=== PATIENT | female | born 1940 | race American Indian/Alaskan Native ===

== ENCOUNTER 2016-07-01 11:30 | Outpatient (CLI) | payer MEDICARE ==
--- NOTE | 2016-07-01 16:07 | Mammography Report ---
Bilateral digital screening mammogram with CAD. Comparison is made to the previous study on January 16, 2015. Findings: The breasts have a fibrofatty appearance. 2 small asymmetry is seen in the posterior right breast on the previous study have resolved. No masses, architectural distortion, or suspicious calcifications are seen. A single biopsy clip is seen in the right subareolar region. Impression: No suspicious findings. BI-RADS code: 2. Recommendation: Annual screening.
== END 2016-07-01 11:31 | disposition home or self-care (01) ==
LOC: MAMMO 11:30
PROVIDERS: ATTEND Family Medicine
DX: Z12.31 Encounter for screening mammogram for malignant neoplasm of breast (principal)
CPT/HCPCS: 77067; G0202

== ENCOUNTER 2016-07-09 11:09 | Outpatient (CLI) | payer MEDICARE ==
--- NOTE | 2016-07-09 11:56 | Mammography Report ---
BONE DENSITY STUDY: DEFINITIONS: BMD = Bone Mineral Density T-score = BMD related to mean peak bone mass of young adult (mean expressed in Standard Deviation) Z-score = Age matched BMD expressed in SD World Health Organization (WHO) Diagnostic Criteria Normal T-score > -1 SD Osteopenia T-score between -1 and -2.4 SD Osteoporosis T-score -2.5 SD or below FINDINGS: The weighted average BMD of lumbar spine L1-L4 is 1.581 with a T-score of 4.9. The weighted average BMD of hip is 1.087 with a T-score of 1.2. IMPRESSION: The patient's T-score is diagnostic for normal bone density and low relative risk for fracture. NOTE: BMD is not the only risk factor for fracture; also consider factors such as the patient's age, risk of falling, previous osteoporotic fracture, family history of osteoporotic fractures, current smoker, and low body weight. Morin's triangle is a region of interest in femur, predominantly of trabecular bone. It is not a true anatomic site, and ISCD does not recommend its use clinically.
== END 2016-07-09 11:10 | disposition home or self-care (01) ==
LOC: MAMMO 11:09
PROVIDERS: ATTEND Family Medicine
DX: M81.0 Age-related osteoporosis without current pathological fracture (principal)
CPT/HCPCS: 77080

== ENCOUNTER 2020-06-27 10:40 | Outpatient (CLI) | payer MEDICARE ==
--- NOTE | 2020-06-27 14:35 | Mammography Report ---
DIGITAL SCREENING MAMMOGRAM WITH CAD, 06/27/2020 CLINICAL INFORMATION / INDICATION: Routine screening mammography. Although this mammogram was origina lly scheduled as a screening mammogram, the patient reports bilateral breast lumps and pain. We were not able to get a diagnostic mammogram and ultrasound order at the time of the patient's visit. TECHNIQUE: Digital bilateral 2D mammography was obtained in the craniocaudal and mediolateral obliqu e projections. This examination was interpreted with the benefit of Computer-Aided Detection analysis . COMPARISON: 07/01/2016 FINDINGS: Breast Density: There are scattered areas of fibroglandular density. No dominant mass, suspicious calcifications, or architectural distortion in either breast. IMPRESSION: 1. The patient will need to return for additional spot compression views and bilateral breast ultraso und to further assess the areas of pain and palpable concern in both breasts. We were not able to get a correct order for diagnostic mammogram and ultrasound at the time of the patient's visit. Follow up recommendation: Ultrasound BI-RADS Category 0: Incomplete. Needs additional imaging evaluation and/or prior mammograms for maggie corrales. A "normal" or negative report should not discourage follow up or biopsy of a clinically significant f inding. A written summary of these findings will be mailed to the patient. The patient will be entered into a mammography reporting system which will generate a reminder letter for the patient's next appointmen t at the appropriate interval. The [employer] recommends yearly mammograms starting at age 40 and continuing as l adolfo as a woman is in good health. Breast MRI is recommended for women with an approximate 20-25% or greater lifetime risk of breast cancer, including women with a strong family history of breast or ova angelito cancer or who have been treated for Hodgkin's disease. Signer Name: aDnita Valerio MD Signed: 06/27/2020 2:31 PM Workstation Name: [employer]
== END 2020-06-27 10:41 | disposition home or self-care (01) ==
LOC: MAMMO 10:40
PROVIDERS: ATTEND Family Medicine
DX: Z12.31 Encounter for screening mammogram for malignant neoplasm of breast (principal); N64.4 Mastodynia; N63.20 Unspecified lump in the left breast, unspecified quadrant; N63.10 Unspecified lump in the right breast, unspecified quadrant; Z80.3 Family history of malignant neoplasm of breast
CPT/HCPCS: 77067

== ENCOUNTER 2020-07-05 09:33 | Outpatient (CLI) | payer MEDICARE ==
--- NOTE | 2020-07-05 11:48 | Ultrasound Report ---
BILATERAL DIGITAL DIAGNOSTIC MAMMOGRAM WITH CAD CONVENTIONAL, 07/05/2020 BILATERAL LIMITED BREAST ULTRASOUND CLINICAL INFORMATION / INDICATION: Bilateral axillary lumps/pain. R92.0 TECHNIQUE: Digital bilateral mammographic imaging was performed. Spot compression views were obtained . Limited ultrasound was performed. This examination was interpreted with the benefit of Computer-Aid ed Detection (CAD) analysis. COMPARISON: Bilateral mammography 06/27/20. FINDINGS: Breast Density: The breasts are almost entirely fatty. MAMMOGRAPHIC FINDINGS: No dominant mass, suspicious calcifications, or architectural distortion in ei ther breast. No pathologic adenopathy. ULTRASOUND FINDINGS: Targeted ultrasound evaluation was performed of the area of interest. RIGHT: There is a benign lymph node in the axilla measuring 6.9 mm short axis. No other abnormality. LEFT: There is a benign lymph node in the axilla measuring 7.5 mm short axis. No other abnormality. IMPRESSION: Small benign axillary lymph nodes bilaterally. No mammographic or sonographic evidence of malignancy. Follow up recommendation: Routine yearly BI-RADS Category 2: Benign. A "normal" or negative report should not discourage follow up or biopsy of a clinically significant f inding. A written summary of these findings will be mailed to the patient. The patient will be entered into a mammography reporting system which will generate a reminder letter for the patient's next appointmen t at the appropriate interval. According to the [employer], yearly mammograms are recommended starting at age 40 and continuing as long as a woman is in good health. Breast MRI is recommended for women with an lefty roximately 20-25% or greater lifetime risk of breast cancer, including women with a strong family his tory of breast or ovarian cancer and women who have been treated for Hodgkin's disease. Signer Name: Jesus Lees MD Signed: 07/05/2020 11:44 AM Workstation Name: [email or web address]
== END 2020-07-05 09:34 | disposition home or self-care (01) ==
LOC: MAMMO 09:33
PROVIDERS: ATTEND Family Medicine
DX: R92.0 Mammographic microcalcification found on diagnostic imaging of breast (principal); R59.0 Localized enlarged lymph nodes
CPT/HCPCS: 77066

== ENCOUNTER 2020-08-01 09:57 | Outpatient (CLI) | payer MEDICARE ==
--- NOTE | 2020-08-01 13:38 | Vascular Lab Report ---
DOPPLER ULTRASOUND LOWER EXTREMITY VENOUS MAPPING, BILATERAL INDICATION / CLINICAL INFORMATION: VENOUS INSUFFICIENCY BILATERAL TECHNIQUE: Grayscale, color and spectral Doppler imaging of the venous system of the right and left lower extrem ities was performed. COMPARISON: None available. FINDINGS: Limited study secondary to patient body habitus and positioning. RIGHT LOWER EXTREMITY: DVT (Y/N) = No. Great Saphenous Vein (diameter in cm): - Thigh Proximal: 0.65 - Thigh Mid: 0.49 - Thigh Distal: 0.52 - Calf Proximal: 0.52 - Calf Mid: 0.35 - Calf Distal: 0.29 Mild venous reflux noted in the right mid superficial femoral vein external iliac vein and greater sa phenous vein. Small saphenous vein was not able to be evaluated secondary to study limitations. LEFT LOWER EXTREMITY: DVT (Y/N) = No. Great Saphenous Vein (diameter in cm): - Thigh Proximal: 0.4 - Thigh Mid: 0.23 - Thigh Distal: 0.14 - Calf Proximal: 0.07 - Calf Mid: 0.09 - Calf Distal: 0.18 Mild venous reflux noted in the left common femoral vein and left greater saphenous vein. Small saphe nous vein was not able to be evaluated secondary to study limitations. Additional Findings: None. IMPRESSION: 1. No sonographic evidence of deep venous thrombosis. 2. Bilateral venous insufficiency of the lower extremities described in detail above Signer Name: Jose Antonio Mullen MD Signed: 08/01/2020 1:34 PM Workstation Name: [id number]
== END 2020-08-01 09:58 | disposition home or self-care (01) ==
LOC: VAS 09:57
PROVIDERS: ATTEND Podiatrist Foot & Ankle Surgery
DX: I87.2 Venous insufficiency (chronic) (peripheral) (principal)
CPT/HCPCS: 93970

== ENCOUNTER 2020-08-19 10:01 | Outpatient (CLI) | payer MEDICARE ==
--- NOTE | 2020-08-19 14:05 | Magnetic Resonance Report ---
MR lumbar spine wo con INDICATION / CLINICAL INFORMATION: 80 years Female; low back and bilateral leg pain TECHNIQUE: Multisequence, multiplanar images of the lumbar spine were obtained. COMPARISON: None available. FINDINGS: ALIGNMENT: There is grade 1/2 anterolisthesis of L5 with respect to S1 and L4 with respect to L5. VERTEBRAE:Grossly normal marrow signal and vertebral body height for age. Multilevel Modic type I en dplate changes are seen, with most marked findings at L3-4 and L4-5. VISUALIZED SPINAL CORD: No significant abnormality. INTERVERTEBRAL DISCS: Multilevel disc desiccation noted. Narrowing seen at multiple levels as well. [id number]-HP-[id number] ANALYSIS: L1-2: Mild disc bulge and exjb-pp-gfauctzx facet hypertrophy. Mild canal narrowing. Lateral foraminal narrowing on the left and mild on the right. No significant sequela. L2-3: Mild disc bulge and broad-based right lateral recess/foraminal disc protrusion. Moderate facet hypertrophy seen bilaterally. Mild to moderate canal narrowing noted. There is lateral recess narrowi ng on the right, which could affect the right L3 nerve. Moderate foraminal narrowing seen bilaterally with encroachment upon the L2 nerves. No impingement appreciated. L3-4: Mild disc bulge and broad-based left lateral recess/foraminal disc protrusion. Moderate facet b orderline ligamentum flavum hypertrophy. Moderate to high-grade canal narrowing noted. There is later al recess narrowing on the left, which certainly could affect the left L4 nerve. Marked foraminal shay rowing bilaterally from facet hypertrophy and/or spondylosis. Findings certainly encroach upon the ex iting L3 nerves with borderline impingement noted, although appear to be on a chronic basis. L4-5: Moderate disc bulge and moderate facet/ligamentum flavum hypertrophy. Small synovial cyst sugge sted in the left lateral recess as well. Findings result in high-grade canal narrowing as well as oliva ateral, lateral recess narrowing which could affect L5 nerves. Moderate to marked foraminal narrowing seen bilaterally because of the listhesis, facet hypertrophy, and pseudodisc disease. There is encro achment upon and flattening of the L4 nerves bilaterally. L5-S1: Mild disc bulge and moderate to marked facet hypertrophy. Mild canal narrowing with some degre e of lateral recess narrowing which may affect the S1 nerves. There is moderate foraminal narrowing o n the left and moderate to marked on the right from spondylosis and the listhesis. Changes appear to be chronic, but certainly could affect the L5 nerves-right greater than left. PARASPINAL SOFT TISSUES: There is increased FLAIR signal seen in the marrow of the right facet joint at L4-5. Findings are presumably reactive from facet arthropathy and may be a source of pain. ADDITIONAL FINDINGS: None. IMPRESSION: 1. Significant, multilevel degenerative changes as described above. Most marked findings appear to be at L4-5, followed by L3-4, although findings at multiple levels may affect the exiting or descending nerve roots. Please correlate with dermatomal distribution of patient's symptoms, if present. . Signer Name: Prabhjot Marques MD, III Signed: 08/19/2020 2:00 PM Workstation Name: [id number]
== END 2020-08-19 10:02 | disposition home or self-care (01) ==
LOC: MRI 10:01
PROVIDERS: ATTEND Psychiatry & Neurology Neurology
DX: M51.36 Other intervertebral disc degeneration, lumbar region (principal); M48.07 Spinal stenosis, lumbosacral region; M47.817 Spondylosis without myelopathy or radiculopathy, lumbosacral region
CPT/HCPCS: 72148

== ENCOUNTER 2020-11-25 10:40 | Outpatient (CLI) | payer MEDICARE ==
[2020-11-25 11:41] LABS: Blood Urea Nitrogen 17 mg/dL (7-17)
== END 2020-11-25 10:41 | disposition home or self-care (01) ==
LOC: CT 10:40
PROVIDERS: ATTEND Psychiatry & Neurology Neurology
DX: J32.9 Chronic sinusitis, unspecified (principal)
CPT/HCPCS: 36415; 82565; 84520

== ENCOUNTER 2021-06-20 14:16 | Observation (INO) | payer MEDICARE ==
--- NOTE | 2021-06-20 15:22 | Emergency Department Report ---
ED General Adult HPI - General Chief complaint: Dyspnea/Respdistress Stated complaint: SWELLING AND WEAKNESS IN LEGS Time Seen by Provider: 06/20/21 15:08 Source: EMS Mode of arrival: Ambulatory Limitations: No Limitations - History of Present Illness Initial comments: Patient presents with complaints of SOB @ rest and on exertion. Denies PND, orthopnea. Endorses intermittent chest pain, retrosternal, heavy/tightness, non- radiating, 10/10 @ its peak, none now, not worsened or relieved by anything. Denies palpitations, diaphoresis. Endorses bilateral leg swelling. Denies pain in her calves, recent travel, immobilization, surgery, hospitalization, sex HRT use Severity scale (0 -10): 10 - Related Data Allergies Allergy/AdvReac Type Severity Reaction Status Date / Time codeine AdvReac Swelling Verified 06/20/21 22:06 latex AdvReac Rash Verified 06/20/21 22:06 CONTRAST DYES AdvReac Swelling Uncoded 06/20/21 22:06 ED Review of Systems ROS: Stated complaint: SWELLING AND WEAKNESS IN LEGS Other details as noted in HPI Comment: All other systems reviewed and negative Constitutional: denies: chills, fever ED Physical Exam - General Limitations: No Limitations General appearance: alert, in no apparent distress - Head Head exam: Present: atraumatic, normocephalic - Eye Eye exam: Present: PERRL, EOMI - ENT ENT exam: Present: mucous membranes moist, other (airway patent) - Neck Neck exam: Present: other (supple; no JVD) - Respiratory Respiratory exam: Present: other (good air entry, nml I:E, CTAB, no use of AGUSTIN) - Cardiovascular Cardiovascular Exam: Present: regular rate. Absent: rubs, gallop - GI/Abdominal GI/Abdominal exam: Present: soft, normal bowel sounds. Absent: distended, tenderness - Extremities Exam Extremities exam: Present: other (2+ pitting edema in shins; tender to palpation in R calf with positive Aron's sign) - Back Exam Back exam: Present: full ROM. Absent: tenderness - Neurological Exam Neurological exam: Present: alert, oriented X3, CN II-XII intact. Absent: motor sensory deficit - Skin Skin exam: Present: warm, normal color ED Course Vital Signs 06/20/21 06/20/21 06/20/21 15:05 15:08 15:30 Temperature 97.8 F Pulse Rate 85 85 73 Respiratory 18 16 15 Rate Blood Pressure 152/75 Blood Pressure 152/75 [Left] O2 Sat by Pulse 100 99 97 Oximetry 06/20/21 06/20/21 06/20/21 16:00 16:03 16:30 Temperature Pulse Rate 73 74 Respiratory 21 18 16 Rate Blood Pressure 177/63 152/57 Blood Pressure [Left] O2 Sat by Pulse 98 98 98 Oximetry 06/20/21 06/20/21 06/20/21 17:00 17:30 17:46 Temperature Pulse Rate 80 74 74 Respiratory 18 13 18 Rate Blood Pressure 152/57 173/80 Blood Pressure 173/80 [Left] O2 Sat by Pulse 100 98 Oximetry 06/20/21 06/20/21 06/20/21 18:00 18:30 19:00 Temperature Pulse Rate 75 68 74 Respiratory 11 L 16 15 Rate Blood Pressure 169/65 151/58 168/51 Blood Pressure [Left] O2 Sat by Pulse 98 97 99 Oximetry 06/20/21 06/20/21 06/20/21 19:30 20:01 20:31 Temperature Pulse Rate 72 75 82 Respiratory 16 28 H 24 Rate Blood Pressure 154/55 152/57 137/46 Blood Pressure [Left] O2 Sat by Pulse 100 98 100 Oximetry 06/20/21 06/20/21 06/20/21 20:38 20:43 21:01 Temperature 98.7 F Pulse Rate 78 78 Respiratory 18 16 Rate Blood Pressure 145/45 Blood Pressure 137/46 [Left] O2 Sat by Pulse 100 98 99 Oximetry 06/20/21 06/20/21 06/20/21 21:31 22:01 22:31 Temperature Pulse Rate 77 74 77 Respiratory 20 17 19 Rate Blood Pressure 160/65 140/54 158/53 Blood Pressure [Left] O2 Sat by Pulse 98 98 98 Oximetry 06/20/21 06/20/21 06/20/21 23:01 23:25 23:31 Temperature Pulse Rate 71 72 74 Respiratory 17 16 16 Rate Blood Pressure 157/49 153/45 153/45 Blood Pressure [Left] O2 Sat by Pulse 97 98 97 Oximetry ED Medical Decision Making - Lab Data Result diagrams: 06/20/21 22:32 06/20/21 22:32 Laboratory Tests 06/20/21 06/20/21 06/20/21 17:48 17:48 17:48 WBC 8.1 RBC 4.77 Hgb 12.1 Hct 38.0 MCV 80 MCH 25 L MCHC 32 RDW 14.6 Plt Count 341 Lymph % (Auto) 18.2 [place] % (Auto) 10.6 H Eos % (Auto) 0.6 Baso % (Auto) 1.6 Lymph # (Auto) 1.5 [place] # (Auto) 0.9 H Eos # (Auto) 0.0 Baso # (Auto) 0.1 Seg Neutrophils % 69.0 Seg Neutrophils # 5.6 Sodium 140 Potassium 4.0 Chloride 103.2 Carbon Dioxide 22 Anion Gap 19 BUN 34 H Creatinine 1.1 Estimated GFR 58 BUN/Creatinine Ratio 31 Glucose 98 Calcium 9.4 Total Bilirubin 1.00 AST 130 H ALT 75 H Alkaline Phosphatase 88 Troponin T < 0.010 NT-Pro-B Natriuret Pep 189.8 Total Protein 7.2 Albumin 3.4 L Albumin/Globulin Ratio 0.9 EKG: HR 84, SR, nml SC, narrow QRS, LVH by R in I, no significant ST elevations in contiguous leads CXR: no acute cardiopulmonary process LE Doppler's: neg for DVT CTA chest not done as patient allergic to IV dye. VQ scan deferred to hospitalist - Medical Decision Making Need to r/o ACS. PE less likely but needs to be ruled out definitively. Pneumonia, pneumothorax, anemia ruled out. received aspirin 324 mg PO x 1 Critical care attestation.: If time is entered above; I have spent that time in minutes in the direct care of this critically ill patient, excluding procedure time. ED Disposition Clinical Impression: Chest pain Disposition: ADMITTED INPATIENT Is pt being admited?: Yes Does the pt Need Aspirin: No Condition: Stable Time of Disposition: 19:00 (Patient admitted to Dr. Junior. Sign out was called by me to admitting physician)
--- NOTE | 2021-06-20 15:53 | XRay Report ---
CHEST 1 VIEW INDICATION: Shortness of breath. COMPARISON: 12/01/2013 FINDINGS: SUPPORT DEVICES: None. HEART: Within normal limits. LUNGS/PLEURA: No acute air space or interstitial disease. ADDITIONAL FINDINGS: None. IMPRESSION: 1. No acute findings. Signer Name: Navi Honeycutt MD Signed: 06/20/2021 3:49 PM Workstation Name: [id number]
[2021-06-20 18:03] LABS: Basophils # (Auto) 0.1 K/mm3 (0.0-0.1); Basophils % (Auto) 1.6 % (0.0-1.8); Eosinophils % (Auto) 0.6 % (0.0-4.3); Hemoglobin 12.1 gm/dl (10.1-14.3); Lymphocytes # (Auto) 1.5 K/mm3 (1.2-5.4); Lymphocytes % (Auto) 18.2 % (13.4-35.0); Mean Corpuscular HGB Conc 32 % (30-34); Mean Corpuscular Volume 80 fl (79-97); Monocytes # (Auto) 0.9 K/mm3 (0.0-0.8); Monocytes % (Auto) 10.6 % (0.0-7.3); Platelet Count 341 K/mm3 (140-440); Red Blood Count 4.77 M/mm3 (3.65-5.03); Red Cell Distribution Width 14.6 % (13.2-15.2)
[2021-06-20 18:28] LABS: Alanine Aminotransferase 75 units/L (7-56); Albumin 3.4 g/dL (3.9-5); BUN/Creatinine Ratio 31; Blood Urea Nitrogen 34 mg/dL (7-17); Calcium 9.4 mg/dL (8.4-10.2); Hemolysis Index 0
--- NOTE | 2021-06-20 19:20 | Vascular Lab Report ---
DUPLEX DOPPLER LOWER EXTREMITY VEINS, BILATERAL INDICATION: arturo pain; leg swelling. TECHNIQUE: Duplex doppler imaging was performed through the veins of both lower extremities using venous laly venu and other maneuvers. COMPARISON: No relevant prior imaging study available. FINDINGS: Right Common femoral vein: Negative. Right Superficial femoral vein: Negative. Right Popliteal vein: Negative. Right Calf veins: Negative. Left Common femoral vein: Negative. Left Superficial femoral vein: Negative. Left Popliteal vein: Negative. Left Calf veins: Negative. Additional findings: None.. IMPRESSION: 1. No sonographic evidence for DVT in either lower extremity. Signer Name: Navi Honeycutt MD Signed: 06/20/2021 7:16 PM Workstation Name: [id number]
[2021-06-20] MEDS ORDERED: ASPIRIN 81 MG TAB CHEW PO ONE (21:04)
[2021-06-20] MEDS ORDERED: NITROGLYCERIN 0.4 MG TAB SUBL SL PRN (21:54)
[2021-06-20] MEDS ORDERED: traMADol 50 MG TAB PO PRN (21:54)
[2021-06-20] MEDS ORDERED: ACETAMINOPHEN 325 MG TAB PO PRN (21:54)
[2021-06-20] MEDS ORDERED: MORPHINE 4 MG/1 ML INJ IV PRN (21:54)
--- NOTE | 2021-06-20 22:03 | History and Physical Report ---
History of Present Illness Date of examination: 06/20/21 Date of admission: 06/20/21 Chief complaint: Dyspnea Respiratory distress History of present illness: 81 years old female with history of gout and most likely hypertension was brought to the hospital because of SOB @ rest and on exertion. Denies PND, orthopnea. Endorses intermittent chest pain, retrosternal, heavy/tightness, non- radiating, 10/10 @ its peak, none now, not worsened or relieved by anything. D enies palpitations, diaphoresis. Endorses bilateral leg swelling. Denies pain in her calves, recent travel, immobilization, surgery. In the emergency room initial cardiac enzyme is negative troponin is 0.010, proBNP is 189.8 BUN of 34 creatinine 1.1. Chest x-ray shows no acute finding. We are going to admit the patient we will put the patient on chest pain pathway, will do the serial cardiac enzymes and echocardiogram. We also ordered a VQ scan Past History Past Medical History: hypertension, other Past Surgical History: No surgical history (Gout) Social history: no significant social history Family history: no significant family history Medications and Allergies Allergies Allergy/AdvReac Type Severity Reaction Status Date / Time codeine AdvReac Swelling Unverified 11/22/12 13:19 latex AdvReac Rash Unverified 11/22/12 13:20 CONTRAST DYES AdvReac Swelling Uncoded 11/22/12 13:21 Active Meds: Active Medications Acetaminophen (Acetaminophen 325 Mg Tab) 650 mg PO Q6H PRN PRN Reason: Pain, Mild (1-3) Aspirin (Aspirin Ec 325 Mg Tab) 325 mg PO QDAY HARSHIL Atorvastatin Calcium (Atorvastatin 40 Mg Tab) 40 mg PO QHS HARSHIL Colchicine (Colchicine 0.6 Mg Tab) 0.6 mg PO BID HARSHIL Heparin Sodium (Porcine) (Heparin 5,000 Unit/1 Ml Vial) 5,000 unit SUB-Q Q12HR HARSHIL Morphine Sulfate (Morphine 4 Mg/1 Ml Inj) 2 mg IV Q5MIN PRN PRN Reason: Chest Pain unrelieved by NTG Nitroglycerin (Nitroglycerin 0.4 Mg Tab Subl) 0.4 mg SL Q5M PRN PRN Reason: Chest Pain Pantoprazole Sodium (Pantoprazole 40 Mg Tab) 40 mg PO QDAY HARSHIL Sodium Chloride (Sodium Chloride 0.9% 10 Ml Flush Syringe) 10 ml IV PRN PRN PRN Reason: LINE FLUSH Tramadol HCl (Tramadol 50 Mg Tab) 50 mg PO Q6H PRN PRN Reason: Pain, Moderate (4-6) Review of Systems All systems: negative Cardiovascular: chest pain, edema, shortness of breath, dyspnea on exertion Respiratory: shortness of breath, dyspnea on exertion Exam - Constitutional Vitals: Temp Pulse Resp BP Pulse Ox 98.7 F 77 20 160/65 98 06/20/21 20:43 06/20/21 21:31 06/20/21 21:31 06/20/21 21:31 06/20/21 21:31 General appearance: Present: no acute distress, well-nourished - EENT Eyes: Present: PERRL ENT: hearing intact, clear oral mucosa - Neck Neck: Present: supple, normal ROM - Respiratory Respiratory effort: normal Respiratory: bilateral: diminished - Cardiovascular Heart Sounds: Present: S1 & S2. Absent: rub, click - Extremities Extremities: pulses symmetrical, No edema Peripheral Pulses: within normal limits - Abdominal General gastrointestinal: Present: soft, non-tender, non-distended, normal bowel sounds Female genitourinary: Present: normal - Integumentary Integumentary: Present: clear, warm, dry - Musculoskeletal Musculoskeletal: gait normal, strength equal bilaterally - Psychiatric Psychiatric: appropriate mood/affect, intact judgment & insight - Neurologic Neurologic: CNII-XII intact, moves all extremities HEART Score - HEART Score Troponin: Troponin T < 0.010 ng/mL (0.00-0.029) 06/20/21 17:48 Results - Labs CBC & Chem 7: 06/20/21 17:48 06/20/21 17:48 Labs: Laboratory Last Values WBC 8.1 K/mm3 (4.5-11.0) 06/20/21 17:48 RBC 4.77 M/mm3 (3.65-5.03) 06/20/21 17:48 Hgb 12.1 gm/dl (10.1-14.3) 06/20/21 17:48 Hct 38.0 % (30.3-42.9) 06/20/21 17:48 MCV 80 fl (79-97) 06/20/21 17:48 MCH 25 pg (28-32) L 06/20/21 17:48 MCHC 32 % (30-34) 06/20/21 17:48 RDW 14.6 % (13.2-15.2) 06/20/21 17:48 Plt Count 341 K/mm3 (140-440) 06/20/21 17:48 Lymph % (Auto) 18.2 % (13.4-35.0) 06/20/21 17:48 [place] % (Auto) 10.6 % (0.0-7.3) H 06/20/21 17:48 Eos % (Auto) 0.6 % (0.0-4.3) 06/20/21 17:48 Baso % (Auto) 1.6 % (0.0-1.8) 06/20/21 17:48 Lymph # (Auto) 1.5 K/mm3 (1.2-5.4) 06/20/21 17:48 [place] # (Auto) 0.9 K/mm3 (0.0-0.8) H 06/20/21 17:48 Eos # (Auto) 0.0 K/mm3 (0.0-0.4) 06/20/21 17:48 Baso # (Auto) 0.1 K/mm3 (0.0-0.1) 06/20/21 17:48 Seg Neutrophils % 69.0 % (40.0-70.0) 06/20/21 17:48 Seg Neutrophils # 5.6 K/mm3 (1.8-7.7) 06/20/21 17:48 Sodium 140 mmol/L (137-145) 06/20/21 17:48 Potassium 4.0 mmol/L (3.6-5.0) 06/20/21 17:48 Chloride 103.2 mmol/L (98-107) 06/20/21 17:48 Carbon Dioxide 22 mmol/L (22-30) 06/20/21 17:48 Anion Gap 19 mmol/L 06/20/21 17:48 BUN 34 mg/dL (7-17) H 06/20/21 17:48 Creatinine 1.1 mg/dL (0.6-1.2) 06/20/21 17:48 Estimated GFR 58 ml/min 06/20/21 17:48 BUN/Creatinine Ratio 31 % 06/20/21 17:48 Glucose 98 mg/dL (65-100) 06/20/21 17:48 Calcium 9.4 mg/dL (8.4-10.2) 06/20/21 17:48 Total Bilirubin 1.00 mg/dL (0.1-1.2) 06/20/21 17:48 AST 130 units/L (5-40) H 06/20/21 17:48 ALT 75 units/L (7-56) H 06/20/21 17:48 Alkaline Phosphatase 88 units/L (35-129) 06/20/21 17:48 Troponin T < 0.010 ng/mL (0.00-0.029) 06/20/21 17:48 NT-Pro-B Natriuret Pep 189.8 pg/mL (0-900) 06/20/21 17:48 Total Protein 7.2 g/dL (6.3-8.2) 06/20/21 17:48 Albumin 3.4 g/dL (3.9-5) L 06/20/21 17:48 Albumin/Globulin Ratio 0.9 % 06/20/21 17:48 - Imaging and Cardiology Chest x-ray: report reviewed Assessment and Plan VTE prophylaxis?: Chemical Plan of care discussed with patient/family: Yes - Patient Problems (1) Acute coronary syndrome Current Visit: Yes Status: Acute Plan to address problem: Admit the patient to the medical telemetry. Aspirin 325 mg p.o. daily. Lipitor 40 mg p.o. daily. Nitroglycerin as needed. Serial cardiac enzyme echocardiogram. Consult cardiology if needed (2) Dyspnea Current Visit: Yes Status: Acute Plan to address problem: Oxygen via nasal cannula 3 L/min. DuoNeb by nebulizer every 4 hours. We also do a VQ scan rule out PE. Heparin 5000 units subcu every 12 hours (3) Hypertension Current Visit: Yes Status: Acute Plan to address problem: Hydralazine 10 mg IV every 6 hours as needed. We will continue the home medication (4) Gout Current Visit: Yes Status: Acute Plan to address problem: Tylenol 650 mg p.o. every 6 hours as needed. Colchicine 0.6 mg p.o. twice daily. We will check the uric acid level (5) DVT prophylaxis Current Visit: Yes Status: Acute Plan to address problem: Heparin 5000 units subcu every 12 hours for DVT prophylaxis. Tonics 40 mg p.o. daily for GI prophylaxis. Patient is a full code
[2021-06-20] MEDS ORDERED: hydrALAZINE 20 MG/1 ML INJ IV PRN (22:04)
[2021-06-20 23:13] LABS: Basophils # (Auto) 0.1 K/mm3 (0.0-0.1); Eosinophils # (Auto) 0.1 K/mm3 (0.0-0.4); Eosinophils % (Auto) 1.8 % (0.0-4.3); Hemoglobin 11.6 gm/dl (10.1-14.3); Lymphocytes # (Auto) 1.5 K/mm3 (1.2-5.4); Lymphocytes % (Auto) 19.7 % (13.4-35.0); Mean Corpuscular HGB Conc 32 % (30-34); Mean Corpuscular Volume 80 fl (79-97); Monocytes # (Auto) 0.9 K/mm3 (0.0-0.8); Monocytes % (Auto) 11.2 % (0.0-7.3); Platelet Count 318 K/mm3 (140-440); Red Cell Distribution Width 14.7 % (13.2-15.2)
[2021-06-20] MEDS: HEPARIN 5,000 UNIT/1 ML VIAL SUB-Q SCH (23:48)
[2021-06-21] MEDS ORDERED: POTASSIUM CHLORIDE ER 20 MEQ TAB PO SCH (08:30)
[2021-06-21] MEDS: PANTOPRAZOLE 40 MG TAB PO SCH (10:45)
[2021-06-21] MEDS: ASPIRIN EC 325 MG TAB PO SCH (10:45)
[2021-06-21] MEDS: HEPARIN 5,000 UNIT/1 ML VIAL SUB-Q SCH ×2 (10:45→22:18)
[2021-06-21] MEDS: COLCHICINE 0.6 MG TAB PO SCH ×3 (11:49→22:23)
--- NOTE | 2021-06-21 12:53 | Electrocardiograph Report ---
[facility] Test Date: 2021-06-20 Test Time: 15:01:09 Pat Name: CHARANJIT OCAMPO Department: Room: A452 1 Gender: F Informatics Developer: RUG SIZER : 1940 Requested By: CEZAR HOLT Order Number: [id number] Reading MD: Wilson Lee Measurements Intervals [place] Rate: 85 P: 49 CO: 160 QRS: -4 QRSD: 87 T: 43 QT: 414 QTc: 492 Interpretive Statements Sinus rhythm Left ventricular hypertrophy Anterior ST elevation, probably due to LVH No previous ECG available for comparison Electronically Signed On 06-21-2021 12:53:07 EDT by Wilson Lee
--- NOTE | 2021-06-21 13:00 | Electrocardiograph Report ---
[facility] Test Date: 2021-06-21 Test Time: 07:23:26 Pat Name: CHARANJIT OCAMPO Department: Room: A452 1 Gender: F Buttermaker: LUIS ALBERTO : 1940 Requested By: VIRGINIA HAYES Order Number: [id number] Reading MD: Wilson Lee Measurements Intervals [place] Rate: 70 P: 61 [place]: 163 QRS: 10 QRSD: 91 T: 10 QT: 487 QTc: 525 Interpretive Statements Sinus rhythm Left ventricular hypertrophy ST elevation, consider anterior injury Prolonged QT interval Compared to ECG 06/20/2021 15:01:09, overal,no significant change noted. Prolonged QT interval now present ST (T wave) deviation still present Electronically Signed On 06-21-2021 13:00:08 EDT by Wilson Lee
--- NOTE | 2021-06-21 13:05 | Electrocardiograph Report ---
[facility] Test Date: 2021-06-21 Test Time: 10:35:11 Pat Name: CHARANJIT OCAMPO Department: Room: A452 1 Gender: F Poured Concrete Wall Technician: LUIS ALBERTO : 1940 Requested By: VIRGINIA HAYES Order Number: [id number] Reading MD: Wilson Lee Measurements Intervals [place] Rate: 72 P: 46 MS: 158 QRS: -5 QRSD: 97 T: -6 QT: 448 QTc: 491 Interpretive Statements Sinus rhythm Left ventricular hypertrophy ST elevation, consider anterior injury Compared to ECG 06/21/2021 07:23:26 No significant change noted. Electronically Signed On 06-21-2021 13:05:11 EDT by Wilson Lee
--- NOTE | 2021-06-21 14:05 | Nuclear Medicine Report ---
Perfusion Scan HISTORY: pe. Acute shortness of breath and bilateral leg swelling TECHNIQUE: Patient was given 5.5 mCi of technetium MAA. COMPARISON: Chest x-ray from yesterday FINDINGS: No photopenic defect. Symmetric diffuse radiotracer uptake in the lungs. IMPRESSION: Normal perfusion exam. Signer Name: Navi Honeycutt MD Signed: 06/21/2021 2:00 PM Workstation Name: [id number]
--- NOTE | 2021-06-21 21:56 | Progress Note ---
Assessment and Plan Assessment and plan: #Acute coronary syndrome #Atypical chest pain Negative troponins x2. Procalcitonin unremarkable. Pulmonary perfusion scan unremarkable for pulmonary embolism. Elevated D-dimer; however, likely secondary to patient's undiagnosed rheumatoid arthritis. Received aspirin 325 mg once in the ED. Continue aspirin 81 mg daily Patient currently asymptomatic. If patient remains asymptomatic tomorrow, patient can be discharged home Continue to monitor #Hypertension -Continue home antihypertensives - SBP goal <160 and DBP goal <90 while inpatient - continue to monitor #Gout Continue home medication #Obesity #Weight loss counseling #Exercise counseling - BMI 41.2 - Counseled patient on the importance of weight loss, incorporating exercise, and dietary changes (lean meats, fresh fruits and vegetables, and water intake). Patient expresses understanding. - Time: + 15 min #Advanced care planning -Disease education conducted, care plan discussed, diagnoses discussed, p rognosis discussed, and patient acknowledges understanding with care plan -Time: +30 min Disposition Plan: Pending discharge tomorrow Total Time Spent with Patient (Minutes): 45 min History Interval history: No acute events overnight. Hospitalist Physical - Constitutional Vitals: Temp Pulse Resp BP Pulse Ox 97.3 F L 80 18 167/70 95 06/21/21 16:20 06/21/21 16:20 06/21/21 16:20 06/21/21 16:57 06/21/21 16:20 General appearance: Present: no acute distress, well-nourished - EENT Eyes: Present: PERRL, EOM intact ENT: hearing intact, clear oral mucosa, dentition normal - Neck Neck: Present: supple, normal ROM - Respiratory Respiratory effort: normal Respiratory: bilateral: CTA - Cardiovascular Rhythm: regular Heart Sounds: Present: S1 & S2 - Extremities Extremities: no ischemia, pulses intact, pulses symmetrical, No edema, normal temperature, normal color Peripheral Pulses: within normal limits - Abdominal General gastrointestinal: soft, non-tender, non-distended, normal bowel sounds - Integumentary Integumentary: Present: clear, warm, dry - Psychiatric Psychiatric: appropriate mood/affect, cooperative - Neurologic Neurologic: CNII-XII intact - Allied Health Allied health notes reviewed: nursing HEART Score - HEART Score Troponin: Troponin T < 0.010 ng/mL (0.00-0.029) 06/21/21 05:12 Results - Labs CBC & Chem 7: 06/22/21 05:08 06/22/21 05:08 Labs: Laboratory Last Values WBC 7.7 K/mm3 (4.5-11.0) 06/20/21: RBC 4.50 M/mm3 (3.65-5.03) 06/20/21: Hgb 11.6 gm/dl (10.1-14.3) 06/20/21: Hct 36.0 % (30.3-42.9) 06/20/21: MCV 80 fl (79-97) 06/20/21: MCH 26 pg (28-32) L 06/20/21: MCHC 32 % (30-34) 06/20/21: RDW 14.7 % (13.2-15.2) 06/20/21: Plt Count 318 K/mm3 (140-440) 06/20/21: Lymph % (Auto) 19.7 % (13.4-35.0) 06/20/21: [place] % (Auto) 11.2 % (0.0-7.3) H 06/20/21: Eos % (Auto) 1.8 % (0.0-4.3) 06/20/21: Baso % (Auto) 1.0 % (0.0-1.8) 06/20/21: Lymph # (Auto) 1.5 K/mm3 (1.2-5.4) 06/20/21: [place] # (Auto) 0.9 K/mm3 (0.0-0.8) H 06/20/21: Eos # (Auto) 0.1 K/mm3 (0.0-0.4) 06/20/21: Baso # (Auto) 0.1 K/mm3 (0.0-0.1) 06/20/21: Seg Neutrophils % 66.3 % (40.0-70.0) 06/20/21: Seg Neutrophils # 5.1 K/mm3 (1.8-7.7) 06/20/21: D-Dimer 1959.57 ng/mlDDU (0-234) H 06/21/21 09:57 Sodium 140 mmol/L (137-145) 06/20/21 22:32 Potassium 3.5 mmol/L (3.6-5.0) L 06/20/21 22:32 Chloride 103.0 mmol/L (98-107) 06/20/21 22:32 Carbon Dioxide 23 mmol/L (22-30) 06/20/21 22:32 Anion Gap 18 mmol/L 06/20/21 22:32 BUN 35 mg/dL (7-17) H 06/20/21 22:32 Creatinine 1.3 mg/dL (0.6-1.2) H 06/20/21 22:32 Estimated GFR 48 ml/min 06/20/21 22:32 BUN/Creatinine Ratio 27 % 06/20/21 22:32 Glucose 106 mg/dL (65-100) H 06/20/21 22:32 Calcium 9.0 mg/dL (8.4-10.2) 06/20/21 22:32 Total Bilirubin 1.00 mg/dL (0.1-1.2) 06/20/21 17:48 AST 130 units/L (5-40) H 06/20/21 17:48 ALT 75 units/L (7-56) H 06/20/21 17:48 Alkaline Phosphatase 88 units/L (35-129) 06/20/21 17:48 Troponin T < 0.010 ng/mL (0.00-0.029) 06/21/21 05:12 NT-Pro-B Natriuret Pep 189.8 pg/mL (0-900) 06/20/21 17:48 Total Protein 7.2 g/dL (6.3-8.2) 06/20/21 17:48 Albumin 3.4 g/dL (3.9-5) L 06/20/21 17:48 Albumin/Globulin Ratio 0.9 % 06/20/21 17:48 Procalcitonin 0.27 ng/mL (<0.15) 06/21/21 09:57 Delvalle/IV: Voiding Method Bedside Commode Active Medications - Current Medications Current Medications: Generic Name Dose Route Start Last Admin Trade Name Freq PRN Reason Stop Dose Admin Acetaminophen 650 mg 06/20/21 21:54 06/20/21 22:16 Acetaminophen 325 Mg Tab PO 650 mg Q6H PRN Administration Pain, Mild (1-3) Aspirin 325 mg 06/21/21 10:00 06/21/21 10:45 Aspirin Ec 325 Mg Tab PO 325 mg QDAY HARSHIL Administration Atorvastatin Calcium 40 mg 06/20/21 22:00 06/20/21 22:16 Atorvastatin 40 Mg Tab PO 40 mg QHS HARSHIL Administration Clonidine HCl 0.3 mg 06/21/21 21:22 Clonidine 0.2 Mg Tab PO TID HARSHIL Colchicine 0.6 mg 06/20/21 22:00 06/21/21 13:17 Colchicine 0.6 Mg Tab PO 0.6 mg BID HARSHIL Administration Heparin Sodium (Porcine) 5,000 unit 06/20/21 22:00 06/21/21 10:45 Heparin 5,000 Unit/1 Ml Vial SUB-Q 5,000 unit Q12HR HARSHIL Administration Hydralazine HCl 10 mg 06/20/21 22:04 06/21/21 16:57 Hydralazine 20 Mg/1 Ml Inj IV 10 mg Q6H PRN Administration Blood Pressure Hydrochlorothiazide 100 mg 06/21/21 22:00 Hydrochlorothiazide 25 Mg Tab PO QDAY [facility] Losartan Potassium 12.5 mg 06/21/21 22:00 Losartan 25 Mg Tab PO QDAY [facility] Morphine Sulfate 2 mg 06/20/21 21:54 Morphine 4 Mg/1 Ml Inj IV Q5MIN PRN Chest Pain unrelieved by NTG Nitroglycerin 0.4 mg 06/20/21 21:54 Nitroglycerin 0.4 Mg Tab Subl SL Q5M PRN Chest Pain Pantoprazole Sodium 40 mg 06/21/21 10:00 06/21/21 10:45 Pantoprazole 40 Mg Tab PO 40 mg QDAY HARSHIL Administration Sodium Chloride 10 ml 06/20/21 21:54 06/21/21 10:45 Sodium Chloride 0.9% 10 Ml Flush Syringe IV 10 ml PRN PRN Administration LINE FLUSH Spironolactone 25 mg 06/22/21 10:00 Spironolactone 25 Mg Tab PO QDAY [facility] Tramadol HCl 50 mg 06/20/21 21:54 Tramadol 50 Mg Tab PO Q6H PRN Pain, Moderate (4-6)
[2021-06-21] MEDS ORDERED: LOSARTAN 25 MG TAB PO SCH (22:00)
[2021-06-21] MEDS ORDERED: hydroCHLOROthiazide 25 MG TAB PO SCH (22:00)
[2021-06-21] MEDS: cloNIDine 0.2 MG TAB PO SCH (22:23)
[2021-06-22 05:35] LABS: Basophils % (Auto) 0.8 % (0.0-1.8); Eosinophils # (Auto) 0.3 K/mm3 (0.0-0.4); Eosinophils % (Auto) 5.6 % (0.0-4.3); Hematocrit 35.8 % (30.3-42.9); Hemoglobin 11.4 gm/dl (10.1-14.3); Lymphocytes # (Auto) 1.8 K/mm3 (1.2-5.4); Lymphocytes % (Auto) 32.9 % (13.4-35.0); Mean Corpuscular HGB Conc 32 % (30-34); Mean Corpuscular Volume 80 fl (79-97); Monocytes # (Auto) 0.6 K/mm3 (0.0-0.8); Monocytes % (Auto) 10.3 % (0.0-7.3); Platelet Count 335 K/mm3 (140-440); Red Blood Count 4.48 M/mm3 (3.65-5.03); Red Cell Distribution Width 14.8 % (13.2-15.2)
--- NOTE | 2021-06-22 07:56 | Discharge Summary ---
Providers - Providers Date of Admission: 06/20/21 21:54 Date of discharge: 06/22/21 Attending physician: LISSETH CORNELIUS MD 06/20/21 Consult to Cardiac Rehabilitation [CONS] Routine Reason For Exam: Phase I Primary care physician: ON SITE NURSE Hospitalization Reason for admission: Acute coronary syndrome Condition: Stable Pertinent studies: Reviewed. Procedures: Pulmonary perfusion scan, bilateral lower extremity venous Dopplers Hospital course: Patient is a 81-year-old female past medical history of hypertension, hypothyroidism, [id number] type 2 diabetes mellitus, gout, morbid obesity who presented with shortness of breath at rest and on exertion. Patient denied any PND, orthopnea, peripheral edema, or syncope. In the ED, the patient was found to be hemodynamically stable with BNP of 190, creatinine of 1.1, and negative troponin x2. The patient's chest x-ray was relatively unremarkable. Due to concern for possible pulmonary embolism, patient had bilateral lower extremity venous Dopplers that were unremarkable for DVT. Lidia ent also underwent a pulmonary perfusion scan that was unremarkable for pulmonary embolism. A procalcitonin was ordered that was unremarkable; in the setting of a stable chest x-ray, antibiotics were not initiated. D-dimer was elevated at 1959; however, it is likely secondary to undiagnosed rheumatoid arthritis that is visualized and the patient's metacarpals. The patient has been counseled about following up with a supervisor plasma upon discharge. At this point, the patient is hemodynamically stable. The patient will be referred to outpatient cardiology for possible Lexiscan for further evaluation. Patient is medically clear for discharge. Disposition: 01 HOME / SELF CARE / HOMELESS Final Discharge Diagnosis (Prints w/discharge instructions): Atypical chest pain, hypertension, gout, morbid obesity Time spent for discharge: 45 min Core Measure Documentation - Palliative Care Palliative Care/ Comfort Measures: Not Applicable - Core Measures Any of the following diagnoses?: none Exam - Constitutional Vitals: Temp Pulse Resp BP Pulse Ox 97.9 F 72 19 140/62 98 06/22/21 04:14 06/22/21 04:14 06/22/21 04:14 06/22/21 04:14 06/22/21 04:14 General appearance: Present: no acute distress, well-nourished, obese - EENT Eyes: Present: PERRL, EOM intact ENT: hearing intact, clear oral mucosa, dentition normal - Neck Neck: Present: supple, normal ROM - Respiratory Respiratory effort: normal Respiratory: bilateral: CTA - Cardiovascular Rhythm: regular Heart Sounds: Present: S1 & S2 - Extremities Extremities: no ischemia, pulses intact, pulses symmetrical, No edema, normal temperature, normal color Peripheral Pulses: within normal limits - Abdominal General gastrointestinal: Present: soft, non-tender, non-distended, normal bowel sounds Female genitourinary: Present: deferred - Rectal Rectal Exam: deferred - Integumentary Integumentary: Present: clear, warm, dry - Musculoskeletal Musculoskeletal: strength equal bilaterally - Psychiatric Psychiatric: appropriate mood/affect, cooperative - Neurologic Neurologic: CNII-XII intact, moves all extremities - Allied Health Allied health notes reviewed: nursing Plan Activity: advance as tolerated Diet: low salt Additional Instructions: Patient is a 81-year-old female past medical history of hypertension, hypothyroidism, fte-lhokkps-fxyezkqch type 2 diabetes mellitus, gout, morbid obesity who presented with shortness of breath at rest and on exertion. Patient denied any PND, orthopnea, peripheral edema, or syncope. In the ED, the patient was found to be hemodynamically stable with BNP of 190, creatinine of 1.1, and negative troponin x2. The patient's chest x-ray was relatively unremarkable. Due to concern for possible pulmonary embolism, patient had bilateral lower extremity venous Dopplers that were unremarkable for DVT. Patient also underwent a pulmonary perfusion scan that was unremarkable for pulmonary embolism. A procalcitonin was ordered that was unremarkable; in the setting of a stable chest x-ray, antibiotics were not initiated. D-dimer was elevated at 1959; however, it is likely secondary to undiagnosed rheumatoid arthritis that is visualized and the patient's metacarpals. The patient has been counseled about following up with a supervisor plasma upon discharge. At this point, the patient is hemodynamically stable. The patient will be referred to outpatient cardiology for possible Lexiscan for further evaluation. Patient is medically clear for discharge. Care Plan Goals: Patient is medically cleared for discharge. Assessment: Patient is a 81-year-old female past medical history of hypertension, hypothyroidism, taa-ifppxsb-qnleaadas type 2 diabetes mellitus, gout, morbid obesity who presented with shortness of breath at rest and on exertion. Patient denied any PND, orthopnea, peripheral edema, or syncope. In the ED, the patient was found to be hemodynamically stable with BNP of 190, creatinine of 1.1, and negative troponin x2. The patient's chest x-ray was relatively unremarkable. Due to concern for possible pulmonary embolism, patient had bilateral lower extremity venous Dopplers that were unremarkable for DVT. Patient also underwent a pulmonary perfusion scan that was unremarkable for pulmonary embolism. A procalcitonin was ordered that was unremarkable; in the setting of a stable chest x-ray, antibiotics were not initiated. D-dimer was e levated at 1959; however, it is likely secondary to undiagnosed rheumatoid arthritis that is visualized and the patient's metacarpals. The patient has been counseled about following up with a supervisor plasma upon discharge. At this point, the patient is hemodynamically stable. The patient will be referred to outpatient cardiology for possible Lexiscan for further evaluation. Patient is medically clear for discharge. Follow up with: GAYLA CHARLES MD [Primary Care Provider] - 3-5 Days SHILPA MAYO MD [Staff Physician] - 10 Days (Outpatient Lexiscan for chest pain. Negative troponins during admission. )
[2021-06-22 07:59] VITALS: BP 153/75
[2021-06-22] MEDS: COLCHICINE 0.6 MG TAB PO SCH (09:15)
[2021-06-22] MEDS: PANTOPRAZOLE 40 MG TAB PO SCH (09:16)
[2021-06-22] MEDS: cloNIDine 0.2 MG TAB PO SCH (09:18)
[2021-06-22] MEDS: HEPARIN 5,000 UNIT/1 ML VIAL SUB-Q SCH (09:19)
[2021-06-22] MEDS: ASPIRIN EC 325 MG TAB PO SCH (09:24)
[2021-06-22] MEDS ORDERED: SPIRONOLACTONE 25 MG TAB PO SCH (10:00)
[2021-06-22] MEDS ORDERED: LEVOTHYROXINE 25 MCG TAB PO SCH (10:00)
[2021-06-22] MEDS ORDERED: MONTELUKAST 10 MG TAB PO SCH (10:00)
[2021-06-22] MEDS ORDERED: LEVOTHYROXINE SODIUM 137 MCG PO SCH (10:00)
[2021-06-22] MEDS ORDERED: metFORMIN 500 MG TAB PO SCH (10:00)
[2021-06-22] MEDS ORDERED: LEVOTHYROXINE 112 MCG TAB PO SCH (10:00)
== END 2021-06-22 12:42 | disposition home or self-care (01) ==
LOC: ED 14:16 → 4A 21:54 → INTOOBSV 21:54 → 4A 23:08
PROVIDERS: ADMIT Hospitalist; ATTEND Student in an Organized Health Care Education/Training Program
DX: I24.9 Acute ischemic heart disease, unspecified (principal); I10 Essential (primary) hypertension; R07.89 Other chest pain; R06.00 Dyspnea, unspecified; R06.03 Acute respiratory distress; M10.9 Gout, unspecified; E66.9 Obesity, unspecified; Z79.82 Long term (current) use of aspirin; Z79.899 Other long term (current) drug therapy; Z98.890 Other specified postprocedural states; Z68.41 Body mass index [BMI] 40.0-44.9, adult
CPT/HCPCS: 36415; 71045; 78580; 80048; 80053; 82962; 83880; 84145; 84484; 85025; 85379; 93005; 93970; 96372; 96374; 99285; A9540; C8929; G0378; J0360; J1644; 93306